=== PATIENT | male | born 1990 | race Caucasian/White ===

== ENCOUNTER 2018-05-13 04:09 | Emergency (ER) | payer OTHER, SELFPAY ==
[2018-05-13 04:13] VITALS: PULSE 63; RESP 18; TEMP 36.4; O2SAT 97
--- NOTE | 2018-05-13 04:31 | ED.GENADUL_ITS ---
Discharge Plan Disposition Patient Disposition: HOME Condition: Stable Discharge Details Chief Complaint: DentalOral Clinical Impression: Odontalgia Primary Care Provider: Frederic Bean ED Provider: Miguel Poe Home Meds and New Rx's Prescriptions: New penicillin V potassium 500 mg tablet 500 mg PO TID 10 Days Qty: 30 RF: 0 Discharge Instructions Instructions: Toothache (ED) Additional Instructions: Warm salt water gargles will aid in decreasing her discomfort. Tylenol and/or ibuprofen as needed for pain. Take penicillin as prescribed. Call your dentist for a follow-up appointment this week Medical Decision Making Healthy 28-year-old male with day 2 of right upper odontalgia. Cannot exclude apical infection. No significant fluctuance or asymmetry on exam. He will be prescribed a course of penicillin follow-up with his dentist for recheck HPI General Mode of arrival: ambulatory . Date/Time Provider Initiated Documentation: 05/13/18 04:24 . Limitations to Documentation: no limitations . Information obtained by: patient . History of Present Illness 28 year old M presents to the emergency department with the chief complaint of Right upper dental pain times 2 days, described as similar to prior episodes, Quality is described as aching, and is localized to the mouth and right. Patient r eports no radiation. Patient started experiencing this day(s) and it has been constant. No relieving factors improve symptom(s), No exacerbating factors reported . Patient notes no other symptoms.. Related Data Home Medications Medication Instructions Recorded Confirmed penicillin V potassium 500 mg PO TID 10 Days #30 tab 05/13/18 Previous Rx's Medication Instructions Recorded penicillin V potassium 500 mg PO TID 10 Days #30 tab 05/13/18 Allergies Allergy/AdvReac Type Severity Reaction Status Date / Time No Known Allergies Allergy Unverified 05/13/18 04:19 General Stated Complaint: DentalOral JAVIER: 4 Review of Systems Review of Systems 6 systems reviewed and otherwise negative PFSH Social History Smoking/Tobacco Use Status: Former Tobacco Use Exam Narrative Exam Narrative: GEN: awake, alert, oriented 3. Pleasant, well groomed, interactive. HEAD: Normocephalic, atraumatic ENT: Mucous membranes moist, oropharynx with few dental caries, tender to percussion right maxillary premolars, External ear exam unremarkable EYES: PERRL, EOMI NECK: Full ROM, no JOHN, no menigismus CHEST/RESP: Nontender, clear to auscultation bilateral, no wheeze/rhonchi/rales CARDIOVASCULAR: RRR, no murmur, rub nelda. 2+ Rad pulse bilateral Neuro: Grossly normal neurologic exam, conversant, interactive. Psych: Speech fluent, thoughts congruent, affect normal Course Vital Signs Temperature 36.4 C 05/13/18 04:13 Pulse 63 05/13/18 04:13 Respiratory Rate 18 05/13/18 04:13 Pulse Oximetry 97 05/13/18 04:13 Temperature 36.4 C 05/13/18 04:13 Temperature Source Temporal Artery Scan 05/13/18 04:13 Pulse 63 05/13/18 04:13 Respiratory Rate 18 05/13/18 04:13 Respiratory Effort 05/13/18 04:13 Pulse Oximetry 97 05/13/18 04:13 Oxygen Delivery Method Room Air 05/13/18 04:13 Oxygen Flow Rate 0 05/13/18 04:13 Pain Level 10 05/13/18 04:18
[2018-05-13] MEDS: Penicillin V POTASSIUM 500 MG TAB PO (04:38)
== END 2018-05-13 04:56 | disposition home or self-care (01) ==
LOC: ER 04:50
PROVIDERS: Emergency Provider Emergency Medicine; PCP Family Medicine
DX: K08.89 Other specified disorders of teeth and supporting structures (principal); Z87.891 Personal history of nicotine dependence
CPT/HCPCS: 99283

== ENCOUNTER 2023-08-16 10:24 | Outpatient (REF) | payer OTHER, SELFPAY ==
[2023-08-16 16:02] LABS: ALT 33 U/L (16-63); AST 29 U/L (15-37); Albumin 4.4 g/dL (3.4-5.0); Alkaline Phosphatase 87 U/L (46-116); Anion Gap 10.2 mmol/L (3-11); BUN 19 mg/dL (7-18); Bilirubin, Total 0.6 mg/dL (0.2-1.0); CO2 28.8 mmol/L (21.0-32.0); Calcium 9.7 mg/dL (8.5-10.1); Calculated LDL 161 mg/dL (<100); Chloride 103 mmol/L (98-107); Cholesterol 254 mg/dL (<200); Estimated GFR 100.66 (mL/min/1.73m2); Glucose 107 mg/dL (74-106); HDL Cholesterol 79 mg/dL (40-60); Potassium 4.8 mmol/L (3.5-5.1); Sodium 142 mmol/L (136-145); Triglyceride 74 mg/dL (<150)
== END 2023-08-16 10:25 | disposition home or self-care (01) ==
LOC: NCHCN 10:24
PROVIDERS: PCP Family Medicine; Visit Provider Nurse Practitioner Family
DX: Z00.00 Encounter for general adult medical examination without abnormal findings (principal); R35.0 Frequency of micturition; Z13.220 Encounter for screening for lipoid disorders
CPT/HCPCS: 80053; 80061

== ENCOUNTER → 2023-11-25 00:58 | Outpatient (CLI) | payer OTHER, SELFPAY ==
--- NOTE | 2023-11-25 08:05 | DI.RAD_ITS ---
Exam(s) XR LUMBAR SPINE COMPLETE EXAM: XR LUMBAR SPINE COMPLETE CLINICAL HISTORY: M54.50 Low back pain. TECHNIQUE: 2D digital imaging was performed of the lumbar spine. Five images were obtained. AP, la teral, right oblique, left oblique and L5-S1 spot views were obtained. COMPARISON: CR LUMBAR SPINE COMPLETE from 03/07/2015 FINDINGS: BONES: No fracture or destructive lesion. Vertebral bodies are unremarkable. No facet hypertrophy moira ntified. DISKS: Intervertebral disc spaces are maintained. ALIGNMENT: Lumbar spinal alignment is within normal limits. No spondylolysis or spondylolisthesis. SOFT TISSUE: Normal. IMPRESSION: Unremarkable radiographs of the lumbar spine. DATA REPOSITORY: RADIATION DOSE DELIVERED:
--- NOTE | 2023-11-25 08:05 | DI.RAD_ITS ---
Exam(s) XR CERVICAL SPINE COMP 4-5V EXAM: XR CERVICAL SPINE COMP 4-5V CLINICAL HISTORY: M54.2 Cervacialgia. TECHNIQUE: 2D digital imaging was performed. Five images were obtained. AP, odontoid, lateral and bi lateral oblique images were obtained. COMPARISON: No exams were available for comparison FINDINGS: The odontoid is intact. The lateral masses are well aligned. There is straightening of the normal ce rvical lordosis. This may be due to muscle spasm or patient positioning. The vertebral bodies, disc spaces and posterior elements are well maintained. No acute fracture or subluxation is present. No significant neural foraminal stenosis is present. The cervical thoracic junction is well maintained. The prevertebral soft tissues are unremarkable. Lung apices are clear. IMPRESSION: Unremarkable radiographs of the cervical spine. DATA REPOSITORY: RADIATION DOSE DELIVERED:
== END ==
PROVIDERS: PCP Nurse Practitioner Family; Visit Provider Nurse Practitioner Family
DX: M54.50 Low back pain, unspecified (principal); M54.2 Cervicalgia
CPT/HCPCS: 72050; 72110

== ENCOUNTER 2024-01-23 02:25 | Outpatient (CLI) | payer OTHER, SELFPAY ==
--- NOTE | 2024-01-23 08:10 | DI.MRI_ITS ---
Exam(s) MR CERVICAL SPINE WO EXAM: MR CERVICAL SPINE WO CLINICAL HISTORY: CERVICALGIA, M54.2, PAIN IN CERVICAL SPINE TECHNIQUE: Multiplanar multisequence MRI of the cervical spine was performed without intravenous con trast. COMPARISON: CR XR CERVICAL SPINE COMP 4-5V from 11/25/2023 FINDINGS: CERVICOMEDULLARY JUNCTION: Intact with no evidence of cerebellar tonsillar ectopia. No obvious abnor mality of the odontoid process. No evidence of Chiari 1 malformation. CERVICAL SPINAL CORD: There is no abnormal signal in the cervical spinal cord and no evidence of foca l cord atrophy nor focal cord swelling. OSSEOUS:There are no cervical fractures evident. No significant osseous lesions in the cervical vert ebrae. INDIVIDUAL LEVELS: C2-3: No disc herniation nor central canal stenosis. No foraminal stenosis. No facet arthropathy. C3-4: No disc herniation nor central canal stenosis.No facet arthropathy. No foraminal stenosis. C4-5: No disc herniation nor central canal stenosis.No facet arthropathy. No foraminal stenosis C5-6: Normal disc height in signal. However, there is a posterolateral left disc protrusion which ex tends posteriorly 2 mm and is approximately 7 mm wide indenting the left anterior thecal sac but not the spinal cord. The disc herniation extends slightly into the exiting left neural foramen. However , there is no prominent foraminal stenosis. Central canal dimensions are within normal limits. Ther e is no significant facet arthropathy at this level. C6-7: Normal disc height and signal. However, there is a posterolateral right-right paracentral disc herniation at this level which extends posteriorly 3 mm and is approximately 12 mm wide.. This inde nts the anterior and right side of the thecal sac at this level. It does not appear to extend apprec iably into the exiting right neural foramen. Both exiting neural foramina are patent. Central osseo us canal dimensions are within normal limits. There is no significant facet arthropathy at this leve l. C7-T1: No disc herniation nor central canal stenosis. No facet arthropathy.No foraminal stenosis. IMPRESSION: 1. There are disc protrusions at both C5-6 and C6-7 levels as described above. 2. No abnormal signal evident within the cervical spinal cord. No evidence of cord swelling nor atro phy. 3. There is no significant facet arthropathy in the cervical spinal column. DATA REPOSITORY:
== END 2024-01-23 02:45 ==
PROVIDERS: PCP Nurse Practitioner Family
DX: M50.122 Cervical disc disorder at C5-C6 level with radiculopathy (principal)
CPT/HCPCS: 72141

== ENCOUNTER 2024-04-09 01:29 | Outpatient (CLI) | payer OTHER, SELFPAY ==
--- NOTE | 2024-04-09 06:45 | DI.MRI_ITS ---
Exam(s) MR BRAIN WO EXAM: MR BRAIN WO CLINICAL HISTORY: R face and arm tingling; ? demyelinating,r20.2 TECHNIQUE: Multiplanar multisequence MRI of the brain was performed. COMPARISON: No exams were available for comparison FINDINGS: VENTRICLES AND EXTRA AXIAL SPACES: Normal in size and morphology for the patient's age. MIDLINE SHIFT: None. CEREBRAL PARENCHYMA: No focus of restricted diffusion to suggest acute infarct. No space-occupying le tyree identified. No abnormal high signal lesions in the white matter. BRAINSTEM/CEREBELLUM: Normal. VISUALIZED PARANASAL SINUSES: Clear. MASTOIDS:Clear. Vasculature: Normal flow void. PITUITARY GLAND: Unremarkable. ORBITS: Unremarkable. IMPRESSION: Unremarkable MRI of the brain. DATA REPOSITORY:
== END 2024-04-09 01:49 ==
LOC: DI 01:29
PROVIDERS: PCP Nurse Practitioner Family; Visit Provider Psychiatry & Neurology Neurology
DX: R20.2 Paresthesia of skin (principal)
CPT/HCPCS: 70551

== ENCOUNTER 2024-10-03 07:50 | Outpatient (CLI) | payer OTHER, SELFPAY ==
[2024-10-03 08:03] VITALS: BP 125/80; PULSE 61; RESP 14; TEMP 36.5; O2SAT 100
[2024-10-03 08:30] VITALS: PULSE 56; O2SAT 99
[2024-10-03 08:40] VITALS: PULSE 59; O2SAT 99
--- NOTE | 2024-10-03 08:40 | PDOC.PAIN ---
Date of service: 10/03/24 Time of Service: 08:44 Pain Managment Procedure Note Procedure Note Procedure Note: CERVICAL EPIDURAL STEROID INJECTION ? Pre-procedure Diagnosis: M54.12- Radiculopathy, cervical region ? Post-procedure Diagnosis:? The same as above ? Sedation:? ? none ? Medication: Depo-Medrol 80 mg, Omnipaque 1 mL ? Estimated blood loss:? less than 2 cc ? Surgeon:? Xiang Vazquez MD Comment: Right sided disc protrusion with neck and right upper extremity pain ? Procedure Detail:? The procedure and potential risks were explained to the patient and informed written consent was obtained. The patient was escorted to the procedure room and placed in the prone position. Pillows were utilized for proper positioning and comfort. Time out was performed in the procedure room with nursing staff confirming the patient's identity, procedure to be performed, allergies, and any blood thinning or anti-platelet medications.? The patient's neck and upper back was prepped with ChloraPrep and draped in a sterile fashion. Sterile technique was maintained throughout the procedure.? Sterile gloves were used, a face mask was worn, and new single dose vials of all medications were used with the top being swabbed with alcohol and given time to dry prior to withdrawal of medication. Lidocaine 1% was used to anesthetize the skin. Using a 25-gauge 1.5 inch needle, 1% lidocaine was instilled into the superficial soft tissue overlying the targeted area to provide local anesthesia. With fluoroscopic guidance, a 17 -gauge Tuohy needle was advanced toward the interlaminar space of C7-T1. The needle was then advance through the ligamentum flavum and into the posterior epidural space using the loss of resistance technique. Correct needle placement was confirmed through review of the AP and contralateral oblique fluoroscopic views. A 19-gauge Arrow catheter was threaded cephalad to the Right C6 Following negative aspiration, one cc of Omnipaque 240 contrast was injected which confirmed good flow throughout the epidural space and no evidence of vascular flow or flow into adjacent compartments. Next, following negative aspiration, 1 cc's of normal saline and 80mg of Depo-Medrol was injected. The needle and catheter were gently removed intact. The patient tolerated the procedure well and was transported to the recovery area for observation and discharge instructions. Permanent images saved and recorded. Plan:? Follow up PRN. PAIN PRE PROCEDURE 09/06 POST PROCEDURE 08/06 COMMENT: Repeat as needed if patient [place] get long lasting relief>3 month Coding Conscious Sedation used for procedure: No CPT Codes: Inj Spine C/T w/Imaging - 94931 ([id number] ~G) Additional Codes: Date of Service (52209) Date of service: 10/03/24
--- NOTE | 2024-10-03 08:42 | DI.RAD_ITS ---
Exam(s) XR PAIN CLINIC CERVICAL SP 2V EXAM: XR PAIN CLINIC CERVICAL SP 2V CLINICAL HISTORY: DX: Cervical Radiculopathy. TECHNIQUE: Fluoroscopy was provided for the referring physician for guidance with performing pain cl inic injection procedure. COMPARISON: No exams were available for comparison FINDINGS: Please see procedure note for details. Fluoro time: 16.2 seconds RADIATION DOSE DELIVERED: Ka,r=1.84 mGy
[2024-10-03] MEDS: Omnipaque 240 MG/ML 50 ML BTL IJ (08:43)
[2024-10-03] MEDS: Epidural Tray 1 EACH MC (08:44)
[2024-10-03] MEDS: methylPREDNISolone ACETATE 40 MG/ML VIAL IJ (08:44)
== END 2024-10-03 07:51 | disposition home or self-care (01) ==
LOC: PC 07:51
PROVIDERS: PCP Nurse Practitioner Family; Visit Provider Anesthesiology Pain Medicine
DX: M54.12 Radiculopathy, cervical region (principal)
CPT/HCPCS: 62321; 72040; J1010; Q9967

== ENCOUNTER 2024-12-24 02:30 | Outpatient (CLI) | payer OTHER, SELFPAY ==
--- NOTE | 2024-12-24 10:00 | DI.MRI_ITS ---
Exam(s) MR UPPER JOINT RT WO EXAM: MR UPPER JOINT RT WO CLINICAL HISTORY: R SHOULDER PAIN, SLAP LESION RT SHOULDER, S43.431A TECHNIQUE: Multiplanar multisequence MRI of the shoulder was performed. COMPARISON: CR XR SHOULDER RIGHT from 06/22/2024 FINDINGS: MARROW:There is no evidence of fracture, Hill-Sachs deformity, nor ominous osseous lesions. GLENOHUMERAL JOINT: No joint effusion nor obvious loose intra-articular bodies. No chondral defects. No osteophytes. No degenerative subarticular cysts. ROTATOR CUFF MECHANISM: AC JOINT/ACROMIUM: No significant degenerative changes in the AC joint. No downgoing osteophytes.. There is no evidence of os acromiale. Supraspinatus: Intact. No evidence of tear nor muscle atrophy. Infraspinatus: Intact. No evidence of tear nor muscle atrophy. Teres Minor: Intact. No evidence of tear nor muscle atrophy. Subscapularis/anterior cuff: Intact. No abnormal signal at the level of the multipennate insertional fibers. No significant tear nor atrophy. BICEPS TENDON: Exhibits normal position within the intertubercular groove. No evidence of tear. No tenosynovitis. LABRUM: There is no significant signal abnormality in the superior labrum posterior to the biceps tendon insertion. However, there is a focal tear in the posterior labrum with an associated septated paralabral cyst measuring 9 by 8 by 8 mm. There are no tears in the anterior labrum. Inferior labrum appears intact as does the inferior glenohumeral ligament. LABROLIGAMENTOUS/CAPSULAR COMPLEX: There is no evidence of avulsion of the anterior-inferior labrum, capsule, inferior glenohumeral ligament complex nor disruption of the scapular periosteum to suggest the presence of a Bankart lesion. Also no evidence of obvious Bankart lesion variants. QUADRILATERAL SPACE: No evidence of mass in the region of the axillary nerve and dorsal circumflex humeral vessels. Visualized triceps muscle at this level appears unremarkable. IMPRESSION: 1. The main finding here is a focal tear in the posterior labrum with an associated 9 x 8 x 8 mm septated paralabral cyst. 2. No evidence significant rotator cuff tear nor atrophy nor signal abnormality in the rotator cuff musculature. 3. No significant degenerative changes in the glenohumeral joint and no evidence of joint effusion or loose intra-articular bodies. There is also minimal if any significant degenerative change in the ipsilateral AC joint. DATA REPOSITORY:
== END 2024-12-24 02:50 ==
PROVIDERS: PCP Nurse Practitioner Family; Visit Provider Student in an Organized Health Care Education/Training Program
DX: S43.431A Superior glenoid labrum lesion of right shoulder, initial encounter (principal); X58.XXXA Exposure to other specified factors, initial encounter
CPT/HCPCS: 73221

== ENCOUNTER 2025-01-09 01:31 | Outpatient (CLI) | payer OTHER, SELFPAY ==
--- NOTE | 2025-01-09 06:45 | DI.RAD_ITS ---
Exam(s) RF JOINT INJ. FLUORO GUID RAD EXAM: RF JOINT INJ. FLUORO GUID RAD CLINICAL HISTORY: R SHOULDER PAIN,slap lesion rt shoulder, fluoro guided injection,s43.431a. The Patient has had persistent right pain. Noninvasive measures have been tried. To serve as both diagnostic and therapeutic, an injection under fluoroscopy was recommended. The risks of the procedure were discussed with their Orthopedic provider and the patient elected to proceed. TECHNIQUE: 2D and realtime digital imaging was performed. CONTRAST MATERIAL: Water soluble contrast was utilized. COMPARISON: No exams were available for comparison FINDINGS: The Patient was greeted in the fluoroscopy room. The correct side was identified and the consent was reviewed with the patient and was signed. The patient was properly positioned on the fluoroscopy table. The right shoulderwas then prepped and draped. The right shoulder injection starting point was identified by the bony landmarks and fluoroscopy. The skin and soft tissue in the tract of the injection was anesthetized with 0.25% Bupivacaine. A spinal needle was then inserted into the right shoulder joint at the level of the glenohumeral joint under fluoroscopic guidance. A small amount of Omnipaque solution was injected to confirm intraarticular placement. Once confirmed, the right shoulder was injected with 5cc of a solution containing 0.25% Bupivacaine and 40 mg of Depo-Medrol. A bandaid was placed on the injection site. The patient tolerated the procedure well and left the department in good condition. IMPRESSION: Successful right shoulder injection. RADIATION DOSE DELIVERED: Ka,r=1.87 mGy
[2025-01-09] MEDS: Normal Saline - Diluent 50 ML VIAL IJ (10:10)
[2025-01-09] MEDS: Bupivacaine 0.25% Pres-Free 10 ML VIAL IJ (10:10)
[2025-01-09] MEDS: Omnipaque 300 MG/ML 10 ML BTL IJ (10:11)
[2025-01-09] MEDS: methylPREDNISolone ACETATE 40 MG/ML VIAL IJ (10:11)
== END 2025-01-09 01:51 ==
LOC: DI 01:31
PROVIDERS: PCP Nurse Practitioner Family; Visit Provider Student in an Organized Health Care Education/Training Program
DX: S43.431A Superior glenoid labrum lesion of right shoulder, initial encounter (principal); X58.XXXA Exposure to other specified factors, initial encounter
CPT/HCPCS: 20610; 77002; J0665; J1010

== ENCOUNTER → 2025-05-22 00:12 | Outpatient (CLI) | payer OTHER, SELFPAY ==
--- NOTE | 2025-05-22 | DI.MRI_ITS ---
Exam(s) MR CERVICAL SPINE WO EXAM: MR CERVICAL SPINE WO CLINICAL HISTORY: M54.12,M50.20,M24.111 Radiculopathy cervical region,Cervical disc displac- TECHNIQUE: Multiplanar multisequence MRI of the cervical spine was performed without intravenous contrast. COMPARISON: MR MR CERVICAL SPINE WO from 01/23/2024 MR MR SPINE CERVICAL WO CONTRAST from 02/22/2024 FINDINGS: CERVICOMEDULLARY JUNCTION: Intact with no evidence of cerebellar tonsillar ectopia. No obvious abnormality of the odontoid process. No evidence of Chiari 1 malformation. CERVICAL SPINAL CORD: There is no abnormal signal in the cervical spinal cord and no evidence of focal cord atrophy nor focal cord swelling. OSSEOUS:There are no cervical fractures evident. No significant osseous lesions in the cervical vertebrae. Some straightening of the cervical curvature is unchanged from prior MRI study of January 2024. INDIVIDUAL LEVELS: C2-3: No disc herniation nor central canal stenosis. No foraminal stenosis. No facet arthropathy. C3-4: No disc herniation nor central canal stenosis.No facet arthropathy. No foraminal stenosis. C4-5: No disc herniation nor central canal stenosis.No facet arthropathy. No foraminal stenosis C5-6: Normal disc height. Posteriorly the size of the posterolateral left disc protrusion has decreased when compared to 01/23/2024. There is now a small Luschka joint osteophyte-disc complex but this is significantly smaller than the disc protrusion which was evident on 01/23/2024 at this location. There is no evidence of central spinal canal stenosis nor foraminal stenosis on either side on today's examination. C6-7: Normal disc height. The size of the previously described posterolateral right disc protrusion has also significantly decreased. There is only mild impression upon the anterior right side of the thecal sac at this level. There is no central canal stenosis and there is no significant foraminal stenosis on either side at this level. No facet arthropathy. C7-T1: No disc herniation nor central canal stenosis. No facet arthropathy.No foraminal stenosis. IMPRESSION: 1. Compared to the prior MRI scan of December 2023 the size of the posterolateral left disc protrusion at C5-6 and right side disc herniation C6-7 have both decreased significantly. 2. There are no new additional disc findings. 3. There is no significant central canal stenosis nor foraminal stenosis in the cervical spine at this time. Also no abnormal findings in the cervical spinal cord. DATA REPOSITORY:
== END ==
PROVIDERS: PCP Nurse Practitioner Family; Visit Provider Nurse Practitioner Family
DX: M54.12 Radiculopathy, cervical region (principal); M50.20 Other cervical disc displacement, unspecified cervical region; M24.111 Other articular cartilage disorders, right shoulder
CPT/HCPCS: 72141